=== PATIENT | male | born 1960 | race Caucasian/White ===

== ENCOUNTER 2019-08-19 07:30 | Day surgery (SDC) | payer OTHER ==
[2015-01-22 19:36] VITALS: BP 129/89
[2019-08-19] MEDS ORDERED: LACTATED RINGERS 1,000 ML IV.SOLN IV ONE (08:48)
[2019-08-19] MEDS ORDERED: LIDOCAINE HCL 2% PF 100MG/5ML VIAL IJ ONE (08:48)
[2019-08-19] MEDS ORDERED: PROPOFOL 200 MG/20 ML VIAL IV ONE (08:48)
--- NOTE | 2019-09-02 16:55 | GI Report ---
OPERATIVE/PROCEDURE REPORT PATIENT NAME: RUBIN GRANT DATE OF PROCEDURE: 08/19/2019 REFERRING PHYSICIAN: Dr. Carolina. PROCEDURE PERFORMED: Colonoscopy with polypectomy. SURGEON: Simona Clemons M.D., F.A.C.P. INDICATION FOR PROCEDURE: The patient is a 59-year-old man referred for screening, first colonoscopy. He denies any change of bowel habits or bleeding. He is not aware of colon polyps or cancer in the family. The patient does have some COPD. He has been a cigarette smoker for 40 years, and he also drinks a fifth, and a six-pack per day. He has chronic back pain issues. PROCEDURE MEDICATION: Propofol, as per Anesthesia. DESCRIPTION OF PROCEDURE: The Olympus video colonoscope was advanced through the rectum. The prep was just fair, there was still some residual stool. We were able to advance all the way to the cecum. The appendiceal orifice and terminal ileum looked normal. No obvious Crohns. On slow withdrawal, the cecum, ascending colon, transverse colon no obvious intraluminal lesions were noted. In the descending colon between 45 and 55 cm 2 polyps were removed, varying from 4-5 mm size, sessile. They were both removed with electrocautery and submitted to pathology. Sigmoid colon: Some redundancy. No obvious intraluminal lesions were noted. Retroflexion in the rectum showed some hemorrhoids. The patient tolerated the procedure well. FINDINGS: Two polyps removed from the descending colon. RECOMMENDATIONS: 1. Pending the pathology of the polyps, he is going to have his colon relooked at again between 3 and at least 5 years. 2. Increase fiber in the diet. 3. Stop tobacco usage. 4. Decreasing alcohol use. 5. Follow up with Dr. Carolina. SIMONA CLEMONS M.D., F.A.C.P. Micah R: 08/20/19 Job#: [id number] Cc: Dr. Ge MITCHELL
== END 2019-08-19 09:37 | disposition home or self-care (01) ==
LOC: OPSURG 07:30
PROVIDERS: ATTEND Internal Medicine Gastroenterology
DX: Z12.11 Encounter for screening for malignant neoplasm of colon (principal); D12.4 Benign neoplasm of descending colon; K63.89 Other specified diseases of intestine; K64.9 Unspecified hemorrhoids
CPT/HCPCS: 45388; 88305; J2001; J2704; J7120